=== PATIENT | male | born 1985 | race Caucasian/White ===

== ENCOUNTER 2017-04-22 20:26 | Emergency (ER) | payer OTHER ==
[2017-04-22 21:10] VITALS: RESP 18
[2017-04-22] MEDS ORDERED: LORazepam 1 MG TAB PO STA (21:50)
--- NOTE | 2017-04-22 23:25 | ED ---
Anxiety HPI - General Chief Complaint: Anxiety Stated Complaint: Anxiety/JEREMIAH Time Seen by Provider: 04/22/17 21:38 Source: patient, RN notes reviewed Mode of arrival: ambulatory - History of Present Illness Initial Comments: 32-year-old male presents to the emergency department with a chief complaint of anxiety. Patient has a history of anxiety as well as PTSD. Over the last week or so he's been noticing some increasing anxiety started to have some anxiety attacks. Patient states that he'll get shortness of breath he will become very anxious she will feel as if he cannot function normally. Patient states that the symptoms make him concerned so he thought that he should be evaluated. Patient states he hasn't had any fever chills with this. Patient states this is a much like his anxiety. He went to his counselor and talked that he is still having anxiety so he thought that maybe we can help. He has never taken any medications for his anxiety in the past. He is always she's been able to handle it. Patient denies any known triggers. Patient denies any suicidal or homicidal ideation.Patient denies any recent fever, chills, shortness of breath , chest pain, back pain, abdominal pain, nausea vomiting, numbness or tingling, dysuria or hematuria, constipation or diarrhea, headaches or visual changes, or any other current symptoms. - Related Data Home Medications: Home Medications Medication Instructions Recorded Confirmed No Known Home Medications [No 11/05/15 04/22/17 Known Home Medications] Allergies/Adverse Reactions: Allergies Allergy/AdvReac Type Severity Reaction Status Date / Time No Known Allergies Allergy Verified 04/22/17 22:17 Review of Systems ROS Statement: Those systems with pertinent positive or pertinent negative responses have been documented in the HPI. ROS Other: All systems not noted in ROS Statement are negative. Past Medical History Past Medical History: No Reported History History of Any Multi-Drug Resistant Organisms: None Reported Past Surgical History: Appendectomy, Hernia Repair Past Psychological History: Anxiety, Panic Disorder, PTSD Smoking Status: Former smoker Past Alcohol Use History: None Reported Past Drug Use History: None Reported General Exam Limitations: no limitations General appearance: alert, in no apparent distress ENT exam: Present: normal exam, mucous membranes moist Neck exam: Present: normal inspection. Absent: tenderness, meningismus, lymphadenopathy Respiratory exam: Present: normal lung sounds bilaterally. Absent: respiratory distress, wheezes, rales, rhonchi, stridor Cardiovascular Exam: Present: regular rate, normal rhythm, normal heart sounds. Absent: systolic murmur, diastolic murmur, rubs, gallop, clicks Neurological exam: Present: alert, oriented X3 Psychiatric exam: Present: normal mood, anxious Skin exam: Present: warm, dry, intact, normal color. Absent: rash Course Vital Signs 04/22/17 21:07 Temperature 98.0 F Pulse Rate 87 Respiratory 18 Rate Blood Pressure 132/74 O2 Sat by Pulse 98 Oximetry Medical Decision Making - Medical Decision Making 32-year-old male presents with appears to be an anxiety attack. Patient was given Ativan and states that he has not noticed much improvement or if he states the hospital to make him anxious. He was often psych evaluation he has not suicidal or homicidal just for someone else talk to he states that he has a concert he does not believe that he needs this. At this time he is requesting discharge home. We did discuss return parameters and follow-up. He does consent to safety. All discussion have been answered. At this time we will discharge the patient home. Disposition Clinical Impression: Anxiety Disposition: HOME SELF-CARE Condition: Stable Instructions: Anxiety (ED) Additional Instructions: Please use medication as discussed. Please follow up with family doctor if symptoms have not improved over the next two days. Please return to the emergency room if your symptoms increase or worsen or for any other concerns. Referrals: Chinmay Jean MD [Primary Care Provider] - 1-2 days Time of Disposition: 23:24
[2017-04-22 23:39] VITALS: BP 125/69; PULSE 59; TEMP 97.9
== END 2017-04-22 23:38 | disposition home or self-care (01) ==
LOC: EC 20:26
DX: Z87.891 Personal history of nicotine dependence (principal); F43.10 Post-traumatic stress disorder, unspecified; F41.9 Anxiety disorder, unspecified
CPT/HCPCS: 99283

== ENCOUNTER 2017-05-11 17:32 | Emergency (ER) | payer OTHER ==
[2017-05-11 17:37] VITALS: BP 129/84; PULSE 95; RESP 18; TEMP 99
[2017-05-11] MEDS ORDERED: ORPHENADRINE 30 MG/ML 2 ML VIAL IM STA (17:45)
[2017-05-11] MEDS ORDERED: KETOROLAC 60 MG/2 ML VIAL IM STA (17:45)
[2017-05-11] MEDS ORDERED: methylPREDNISolone SOD SUCCI 125 MG/2 ML VIAL IM ONE (17:45)
--- NOTE | 2017-05-11 17:50 | ED ---
Back Pain HPI - General Chief Complaint: Back Pain/Injury Stated Complaint: [facility] back pain Time Seen by Provider: 05/11/17 17:38 Source: patient Limitations: no limitations - History of Present Illness Initial Comments: 32-year-old male patient presents to emergency department today for evaluation of lower back pain. Patient states that yesterday he was up at her at work when the ladder shifted, and he jerked "tweaking" his back. Patient states that he has a mild pain to his left lower back throughout the day yesterday, when he woke this morning the pain was more intense, and he had sharp shooting pain radiating down the back of his left leg to his knee. Patient states he has had sciatica in the past and is very similar to those symptoms. Patient denies any loss of bowel or bladder control, saddle paresthesia, or numbness and tingling to his lower extremities. Patient denies any chest pain, neck pain , abdominal pain, nausea, vomiting, hematuria, dysuria, urinary frequency or urgency. Denies any constipation, diarrhea, hematochezia, or melena. - Related Data Previous Rx's Medication Instructions Recorded Cyclobenzaprine [Flexeril] 10 mg PO TID #15 tab 05/11/17 Hydrocodone/Acetaminophen [Gill 1 tab PO Q6HR PRN #15 tab 05/11/17 5-325] Ibuprofen [Motrin] 600 mg PO Q6HR PRN #20 tab 05/11/17 methylPREDNISolone [Medrol Dose 4 mg PO DIRECTED #1 pack 05/11/17 Pack] Allergies Allergy/AdvReac Type Severity Reaction Status Date / Time No Known Allergies Allergy Verified 05/11/17 17:37 Review of Systems ROS Statement: Those systems with pertinent positive or pertinent negative responses have been documented in the HPI. ROS Other: All systems not noted in ROS Statement are negative. Past Medical History Past Medical History: No Reported History History of Any Multi-Drug Resistant Organisms: None Reported Past Surgical History: Appendectomy, Hernia Repair Past Psychological History: Anxiety, Panic Disorder, PTSD Smoking Status: Former smoker Past Alcohol Use History: None Reported Past Drug Use History: None Reported General Exam Limitations: no limitations General appearance: alert, in no apparent distress Head exam: Present: atraumatic, normocephalic, normal inspection Eye exam: Present: normal appearance, PERRL, EOMI. Absent: scleral icterus, conjunctival injection, periorbital swelling ENT exam: Present: normal exam, mucous membranes moist Neck exam: Present: normal inspection. Absent: tenderness, meningismus, lymphadenopathy Respiratory exam: Present: normal lung sounds bilaterally. Absent: respiratory distress, wheezes, rales, rhonchi, stridor Cardiovascular Exam: Present: regular rate, normal rhythm, normal heart sounds. Absent: systolic murmur, diastolic murmur, rubs, gallop, clicks GI/Abdominal exam: Present: soft, normal bowel sounds. Absent: distended, tenderness, guarding, rebound, rigid Extremities exam: Present: normal inspection, full ROM, normal capillary refill. Absent: tenderness, pedal edema, joint swelling, calf tenderness Back exam: Present: normal inspection, full ROM. Absent: tenderness, CVA tenderness (R), CVA tenderness (L), vertebral tenderness Expanded Back exam: Positive Straight Leg Raise: Left Neurological exam: Present: alert, oriented X3, CN II-XII intact Psychiatric exam: Present: normal affect, normal mood Skin exam: Present: warm, dry, intact, normal color. Absent: rash Course Vital Signs 05/11/17 17:33 Temperature 99.0 F Pulse Rate 95 Respiratory 18 Rate Blood Pressure 129/84 O2 Sat by Pulse 98 Oximetry Medical Decision Making - Medical Decision Making 32-year-old male patient presented to emergency department today for evaluation of lower back pain. Patient's symptoms are consistent with sciatica. Patient given IM injections of Toradol, Norflex, and Cipro Medrol. Patient be discharged home with a prescription for Gill, Motrin, Flexeril, and a Medrol Dosepak. Patient checked her to follow up with primary care physician a 1-2 days for recheck. Patient shortly to return for any new, worsening, or concerning symptoms. Patient verbalizes understanding and agrees with plan. Disposition Clinical Impression: Sciatica, Back pain Disposition: HOME SELF-CARE Condition: Good Instructions: Sciatica (ED), Acute Low Back Pain (ED) Additional Instructions: Gentle stretching exercises. Complete steroid Dosepak and full. Take pain medications as directed. Do not take muscle relaxers or narcotic pain medications while working, driving, or operating heavy machinery. Follow up with primary care provider in one to 2 days for recheck. Return for any new, worsening, or concerning symptoms. Prescriptions: Cyclobenzaprine [Flexeril] 10 mg PO TID #15 tab Hydrocodone/Acetaminophen [Gill 5-325] 1 tab PO Q6HR PRN #15 tab PRN Reason: Pain Ibuprofen [Motrin] 600 mg PO Q6HR PRN #20 tab PRN Reason: Pain methylPREDNISolone [Medrol Dose Pack] 4 mg PO DIRECTED #1 pack Referrals: Chinmay Jean MD [Primary Care Provider] - 1-2 days Time of Disposition: 17:50
== END 2017-05-11 18:07 | disposition home or self-care (01) ==
LOC: EC 17:32
DX: M54.30 Sciatica, unspecified side (principal); Z87.891 Personal history of nicotine dependence
CPT/HCPCS: 99283; 96372 ×3; J2360; J2930; J1885

== ENCOUNTER 2017-12-07 02:59 | Emergency (ER) | payer OTHER ==
[2017-12-07 03:04] VITALS: RESP 16; TEMP 98.6
[2017-12-07 04:09] LABS: Basophils # (A) 0.1 k/uL (0-0.2); Basophils % (A) 0 %; Eosinophils # (A) 0.2 k/uL (0-0.7); Eosinophils % (A) 2 %; Lymphocytes # (A) 1.9 k/uL (1.0-4.8); Lymphocytes % (A) 18 %; MCH 30.3 pg (25.0-35.0); MCHC 34.8 g/dL (31.0-37.0); MCV 87.1 fL (80.0-100.0); Mean Platelet Volume 6.9; Monocytes # (A) 0.6 k/uL (0-1.0); Monocytes % (A) 5 %; Neutrophils # (A) 8.1 k/uL (1.3-7.7); Neutrophils % (A) 74 %; Platelet Count 291 k/uL (150-450); RBC 4.94 m/uL (4.30-5.90)
--- NOTE | 2017-12-07 04:15 | CT ---
EXAM: CT Abdomen and Pelvis Without Intravenous Contrast CLINICAL HISTORY: ITS.REASON CT Reason: Pain TECHNIQUE: Axial computed tomography images of the abdomen and pelvis without intravenous contrast. CTDI is 9.00 mGy and DLP is 447.30 mGy-cm. This CT exam was performed using one or more of the following dose reduction techniques: automated exposure control, adjustment of the mA and/or kV according to patient size, and/or use of iterative reconstruction technique. COMPARISON: 06/02/15 FINDINGS: Lower thorax: No acute findings. ABDOMEN: Liver: Unremarkable. Gallbladder and bile ducts: Unremarkable. No calcified stones. No ductal dilation. Pancreas: Unremarkable. No ductal dilation. Spleen: Unremarkable. No splenomegaly. Adrenals: Unremarkable. No mass. Kidneys and ureters: Unremarkable. No obstructing stones. No hydronephrosis. Stomach and bowel: Colonic fecal stasis noted. No obstruction. No mucosal thickening. Appendix: No findings to suggest acute appendicitis. PELVIS: Bladder: Unremarkable. No stones. Reproductive: Unremarkable as visualized. ABDOMEN and PELVIS: Intraperitoneal space: Unremarkable. No free air. No significant fluid collection. Bones/joints: No acute fracture. No dislocation. Soft tissues: Unremarkable. Vasculature: Unremarkable. No abdominal aortic aneurysm. Lymph nodes: Unremarkable. No enlarged lymph nodes. IMPRESSION: No acute findings. Colonic fecal stasis noted.
[2017-12-07 04:26] LABS: ALT 40 U/L (21-72); AST 41 U/L (17-59); Albumin 3.9 g/dL (3.5-5.0); Alkaline Phosphatase 78 U/L (38-126); Amylase 49 U/L (30-110); Anion Gap 11 mmol/L; Blood Urea Nitrogen 12 mg/dL (9-20); C Reactive Protein 7.8 mg/L (<10.0); Calcium 9.4 mg/dL (8.4-10.2); Carbon Dioxide 26 mmol/L (22-30); Chloride 106 mmol/L (98-107); Glucose 91 mg/dL (74-99); Lipase 58 U/L (23-300); Potassium 3.7 mmol/L (3.5-5.1); Sodium 143 mmol/L (137-145); Total Bilirubin 0.5 mg/dL (0.2-1.3)
[2017-12-07 04:46] LABS: Appearance,Urine Clear (Clear); Bilirubin,Urine Negative (Negative); Blood,Urine Small (Negative); Color,Urine Yellow; Glucose,Urine (UA) Negative (Negative); Ketones,Urine Negative (Negative); Leukocyte Esterase,Urine Negative (Negative); Mucus,Urine Rare /hpf; Nitrite,Urine Negative (Negative); PH, Urine 5.5 (5.0-8.0); Protein,Urine Trace (Negative); RBC,Urine 17 /hpf (0-5); Specific Gravity,Urine 1.007 (1.001-1.035); Sperm,Urine Rare /hpf; Squamous Epithelial Cell,Urine <1 /hpf (0-4); Urobilinogen,Urine <2.0 mg/dL (<2.0); WBC,Urine 6 /hpf (0-5)
[2017-12-07] MEDS ORDERED: LEVOFLOXACIN 750 MG TAB PO STA (05:27)
[2017-12-07] MEDS ORDERED: cefTRIAXone IN SWFI 1,000 MG/10 ML SYRINGE IVP STA (06:11)
--- NOTE | 2017-12-07 06:12 | ED ---
Abdominal Pain HPI - General Chief Complaint: Abdominal Pain Stated Complaint: abd pain Time Seen by Provider: 12/07/17 03:09 Source: patient Mode of arrival: ambulatory Limitations: no limitations - History of Present Illness Initial Comments: Patient's 32-year-old man with bilateral lower abdominal pain. He was complaining of very severe pain and there was some tenderness on the exam, therefore computed tomography scan is ordered which is negative for emergent condition. We discussed appropriate further care and follow-up. Return parameters discussed. MD Complaint: abdominal pain Onset/Timin -: days(s) Location: LLQ, RLQ Radiation: none Migration to: no migration Severity: severe Quality: cramping Consistency: constant Improves With: nothing Worsens With: nothing Associated Symptoms: denies other symptoms - Related Data Previous Rx's Medication Instructions Recorded Cyclobenzaprine [Flexeril] 10 mg PO TID #15 tab 05/11/17 Hydrocodone/Acetaminophen [Girard 1 tab PO Q6HR PRN #15 tab 05/11/17 5-325] Ibuprofen [Motrin] 600 mg PO Q6HR PRN #20 tab 05/11/17 methylPREDNISolone [Medrol Dose 4 mg PO DIRECTED #1 pack 05/11/17 Pack] Ciprofloxacin HCl [Cipro] 500 mg PO Q12HR #14 tablet 12/07/17 Allergies Allergy/AdvReac Type Severity Reaction Status Date / Time No Known Allergies Allergy Verified 12/07/17 03:04 Review of Systems ROS Statement: Those systems with pertinent positive or pertinent negative responses have been documented in the HPI. ROS Other: All systems not noted in ROS Statement are negative. Constitutional: Denies: fever, chills Respiratory: Denies: cough, dyspnea Cardiovascular: Denies: chest pain, palpitations Gastrointestinal: Reports: abdominal pain. Denies: nausea, vomiting, diarrhea, constipation, melena, hematochezia Genitourinary: Reports: hematuria. Denies: dysuria Musculoskeletal: Denies: back pain Skin: Denies: rash Neurological: Denies: headache, weakness, numbness Past Medical History Past Medical History: No Reported History History of Any Multi-Drug Resistant Organisms: None Reported Past Surgical History: Appendectomy, Hernia Repair Past Psychological History: Anxiety, Panic Disorder, PTSD Smoking Status: Former smoker Past Alcohol Use History: None Reported Past Drug Use History: None Reported General Exam Limitations: no limitations General appearance: alert, in no apparent distress Head exam: Present: atraumatic, normocephalic Eye exam: Present: normal appearance. Absent: scleral icterus, conjunctival injection ENT exam: Present: normal oropharynx Neck exam: Present: normal inspection Respiratory exam: Present: normal lung sounds bilaterally. Absent: respiratory distress, wheezes, rales, rhonchi, stridor Cardiovascular Exam: Present: regular rate, normal rhythm, normal heart sounds. Absent: systolic murmur, diastolic murmur, rubs, gallop GI/Abdominal exam: Present: soft, tenderness (There is mild bilateral lower quadrant and suprapubic tenderness without rebound or guarding), normal bowel sounds. Absent: distended, guarding, rebound, rigid, mass, bruit, pulsatile mass, hernia Extremities exam: Present: normal inspection, normal capillary refill. Absent: pedal edema, calf tenderness Back exam: Present: normal inspection. Absent: CVA tenderness (R), CVA tenderness (L) Neurological exam: Present: alert, normal gait Skin exam: Present: warm, dry, intact, normal color. Absent: rash Course Vital Signs 12/07/17 12/07/17 12/07/17 03:01 04:25 06:46 Temperature 98.6 F Pulse Rate 86 76 82 Respiratory 16 16 16 Rate Blood Pressure 153/81 130/71 136/66 O2 Sat by Pulse 100 97 96 Oximetry Medical Decision Making - Lab Data Result diagrams: 12/07/17 03:44 12/07/17 03:44 Lab Results 12/07/17 12/07/17 12/07/17 Range/Units 03:44 03:44 04:30 WBC 11.0 H (3.8-10.6) k/uL RBC 4.94 (4.30-5.90) m/uL Hgb 15.0 (13.0-17.5) gm/dL Hct 43.0 (39.0-53.0) % MCV 87.1 (80.0-100.0) fL MCH 30.3 (25.0-35.0) pg MCHC 34.8 (31.0-37.0) g/dL RDW 12.0 (11.5-15.5) % Plt Count 291 (150-450) k/uL Neutrophils % 74 % Lymphocytes % 18 % Monocytes % 5 % Eosinophils % 2 % Basophils % 0 % Neutrophils # 8.1 H (1.3-7.7) k/uL Lymphocytes # 1.9 (1.0-4.8) k/uL Monocytes # 0.6 (0-1.0) k/uL Eosinophils # 0.2 (0-0.7) k/uL Basophils # 0.1 (0-0.2) k/uL Sodium 143 (137-145) mmol/L Potassium 3.7 (3.5-5.1) mmol/L Chloride 106 (98-107) mmol/L Carbon Dioxide 26 (22-30) mmol/L Anion Gap 11 mmol/L BUN 12 (9-20) mg/dL Creatinine 1.10 (0.66-1.25) mg/dL Est GFR (MDRD) Af Amer >60 (>60 ml/min/1.73 sqM) Est GFR (MDRD) Non-Af >60 (>60 ml/min/1.73 sqM) Glucose 91 (74-99) mg/dL Calcium 9.4 (8.4-10.2) mg/dL Total Bilirubin 0.5 (0.2-1.3) mg/dL AST 41 (17-59) U/L ALT 40 (21-72) U/L Alkaline Phosphatase 78 (38-126) U/L C-Reactive Protein 7.8 (<10.0) mg/L Total Protein 7.0 (6.3-8.2) g/dL Albumin 3.9 (3.5-5.0) g/dL Amylase 49 (30-110) U/L Lipase 58 (23-300) U/L Urine Color Yellow Urine Appearance Clear (Clear) Urine pH 5.5 (5.0-8.0) Ur Specific [place] 1.007 (1.001-1.035) Urine Protein Trace H (Negative) Urine Glucose (UA) Negative (Negative) Urine Ketones Negative (Negative) Urine Blood Small H (Negative) Urine Nitrite Negative (Negative) Urine Bilirubin Negative (Negative) Urine Urobilinogen <2.0 (<2.0) mg/dL Ur Leukocyte Esterase Negative (Negative) Urine RBC 17 H (0-5) /hpf Urine WBC 6 H (0-5) /hpf Ur Squamous Epith Cells <1 (0-4) /hpf Urine Mucus Rare H (None) /hpf Urine Sperm Rare (None) /hpf Disposition Clinical Impression: Abdominal pain, Urinary tract infection Disposition: HOME SELF-CARE Condition: Fair Instructions: Urinary Tract Infection in Men (ED), Abdominal Pain (ED) Prescriptions: Ciprofloxacin HCl [Cipro] 500 mg PO Q12HR #14 tablet Referrals: Chinmay Jean MD [Primary Care Provider] - 1-2 days
[2017-12-07 06:47] VITALS: BP 136/66; PULSE 82
--- NOTE | 2017-12-08 04:10 | CDI ---
Documentation Clarification OP Dear Miguel Angel BADILLO MD Please do addendum to ED report for HPI , Physical exam and MDM. Thank you, Corrine Jones Retort Operator If you have any question, Please contact manager data at [phone] [facility]
== END 2017-12-07 06:47 | disposition home or self-care (01) ==
LOC: EC 02:59
DX: N39.0 Urinary tract infection, site not specified (principal); R10.31 Right lower quadrant pain; R10.32 Left lower quadrant pain; Z87.891 Personal history of nicotine dependence; Z90.49 Acquired absence of other specified parts of digestive tract
CPT/HCPCS: 36415; 80053; 82150; 83690; 85025; 86140; 81001; 74176; 99284; 96374; J0696

== ENCOUNTER 2018-04-01 17:28 | Emergency (ER) | payer OTHER ==
[2018-04-01 17:33] VITALS: BP 127/85; PULSE 78; RESP 18; TEMP 97.9
--- NOTE | 2018-04-01 19:01 | ED ---
General Adult HPI - General Chief complaint: Extremity Injury, Lower Stated complaint: left knee pain Time Seen by Provider: 04/01/18 17:49 Source: patient, RN notes reviewed Mode of arrival: ambulatory Limitations: physical limitation - History of Present Illness Initial comments: Chief complaint history of present illness a 33-year-old male who after doing cross training developed pain and swelling to his left knee. Patient can't remember any specific injury. But he has been working out heavily for competition. Patient presents now with joint effusion left knee. Pain with flexion. No fever. The patient unfortunately soaked in hot Epsom salts which may have increased swelling. I discussed the patient using cold the first 2 days and then heat afterwards. - Related Data Previous Rx's Medication Instructions Recorded Ibuprofen [Motrin] 600 mg PO Q6HR PRN #20 tab 04/01/18 Allergies Allergy/AdvReac Type Severity Reaction Status Date / Time No Known Allergies Allergy Verified 04/01/18 18:02 Review of Systems ROS Statement: Those systems with pertinent positive or pertinent negative responses have been documented in the HPI. Review of systems no other complaints of head neck body or extremity pain other than pain swelling left knee. All systems were reviewed. Past medical problems none. Surgeries none. Family history 2 sisters of unknown types of cancer. Patient has no ALLERGIES. He quit smoking 3 months ago. She to alcohol rarely socially. ROS Other: All systems not noted in ROS Statement are negative. Past Medical History Past Medical History: No Reported History History of Any Multi-Drug Resistant Organisms: None Reported Past Surgical History: Appendectomy, Hernia Repair Past Psychological History: Anxiety, Panic Disorder, PTSD Smoking Status: Former smoker Past Alcohol Use History: None Reported Past Drug Use History: None Reported General Exam - General Exam Comments Initial Comments: Pertinent to the patient's visit. Vital signs temp 97.9 pulse 78 respiratory rate 18 pulse ox 90% room air blood pressure 127/85 Examination of the knee shows discomfort with valgus stressing to the top of the patella. Localized swelling without erythema. Negative pain with varus straining. Negative Homans sign. Neurovascular status of foot is intact. Negative drawer sign. X-rays of the left knee. Patient advised to apply ice. Advised not to strain the knee with sports. Advised to use ibuprofen 600 mg every 6 hours as needed for pain. Advised follow-up with family physician. If he does not have a orthopedic surgeon already was advised to follow-up with Dr. Nunn Limitations: physical limitation Course Vital Signs 04/01/18 17:31 Temperature 97.9 F Pulse Rate 78 Respiratory 18 Rate Blood Pressure 127/85 O2 Sat by Pulse 98 Oximetry Medical Decision Making - Medical Decision Making Medical decision making; this is a 33-year-old male here for complaint of left knee pain. Localized swelling. X-ray left knee was done and reviewed by radiologist his impression is there is mild knee joint effusion. There is spurring on the patella. There is minor spurring on the medial and lateral femoral and tibial condyles. I see no fracture. There are slightly narrowing of the medial joint space. Impression mild osteoarthritic changes. No fracture seen. As read by Dr. Chandler I discussed the findings of the radiographs with the patient. Advised to use ibuprofen 600 mg. Ice. No overt exercising. He will be referred on to orthopedics because of his young age and early osteoarthritic changes. Disposition Clinical Impression: Sprain of left knee, Osteoarthritis Disposition: HOME SELF-CARE Condition: Fair Instructions: Knee Pain (ED), Osteoarthritis (ED) Additional Instructions: Ice rest, ibuprofen or naproxen for pain and swelling. Follow-up with family physician and on-call orthopedic surgeon. Prescriptions: Ibuprofen [Motrin] 600 mg PO Q6HR PRN #20 tab PRN Reason: Pain Is patient prescribed a controlled substance at d/c from ED?: No Referrals: Chinmay Jean MD [Primary Care Provider] - 1-2 days Karina Nunn DO [Doctor of Osteopathic Medicine] - 1-2 days Time of Disposition: 19:23
--- NOTE | 2018-04-01 19:10 | XR ---
EXAMINATION TYPE: XR knee complete LT DATE OF EXAM: 04/01/2018 COMPARISON: NONE HISTORY: Knee pain TECHNIQUE: 3 views FINDINGS: There is a mild knee joint effusion. There is spurring on the patella. There is minor spurr ing of the medial and lateral femoral and tibial condyles. I see no fracture. There is slight narrowi ng of the medial joint space. IMPRESSION: Mild osteoarthritic changes. No fracture seen.
== END 2018-04-01 19:30 | disposition home or self-care (01) ==
LOC: EC 17:28
DX: S83.92XA Sprain of unspecified site of left knee, initial encounter (principal); M17.12 Unilateral primary osteoarthritis, left knee; Z87.891 Personal history of nicotine dependence
CPT/HCPCS: 99283

== ENCOUNTER 2018-04-03 20:19 | Emergency (ER) | payer OTHER ==
[2018-04-03 20:25] VITALS: RESP 18
--- NOTE | 2018-04-03 21:36 | XR ---
EXAMINATION TYPE: XR ribs RT w pa chest xray DATE OF EXAM: 04/03/2018 COMPARISON: Chest x-ray 07/16/2015 HISTORY: Pain TECHNIQUE: 2 view right ribs supplemented with a frontal chest. FINDINGS: No displaced rib fractures are evident. No pneumothorax is evident. Lung cotton are clear. The heart size is normal. IMPRESSION: 1. No acute rib fracture. 2. No pneumothorax
--- NOTE | 2018-04-03 21:43 | ED ---
General Adult HPI - General Chief complaint: Extremity Injury, Lower Stated complaint: Knee pain Time Seen by Provider: 04/03/18 20:31 Source: patient, RN notes reviewed Mode of arrival: wheelchair Limitations: physical limitation - History of Present Illness Initial comments: 33-year-old male presents to the emergency department for multiple complaints. Patient complains of left knee pain. Patient states this started 4 days ago and he was seen in the emergency department at that time. Negative x-rays. Patient states he did as he was told and rest, ice, and took Motrin for the pain. Patient states the swelling in the knee had decreased dramatically and the pain had subsided. Patient then decided to compete in a cross that competition yesterday which re-exacerbated the pain. Patient states it is swollen. Again and painful to walk on. Patient states the Motrin is not helping as much as it was before. This exacerbation of pain and swelling has been for the past day. Patient denies any acute injuries to the knee. Patient also complains of rib pain times one day. Earlier today patient dropped a weight on his chest. Patient states it is painful to take a deep breath. Patient would like to make sure no ribs are broken. Patient states the pain is all in the right side. Patient denies any abdominal pain.Patient has no other complaints at this time including shortness of breath, chest pain, abdominal pain, nausea or vomiting, headache, or visual changes. - Related Data Previous Rx's Medication Instructions Recorded Ibuprofen [Motrin] 600 mg PO Q6HR PRN #20 tab 04/01/18 HYDROcodone/APAP 5-325MG [Sobieski 1 tab PO Q6HR PRN #10 tab 04/03/18 5-325] Ibuprofen [Motrin] 600 mg PO Q6HR PRN #20 tab 04/03/18 Allergies Allergy/AdvReac Type Severity Reaction Status Date / Time No Known Allergies Allergy Verified 04/03/18 20:25 Review of Systems ROS Statement: Those systems with pertinent positive or pertinent negative responses have been documented in the HPI. ROS Other: All systems not noted in ROS Statement are negative. Past Medical History Past Medical History: No Reported History History of Any Multi-Drug Resistant Organisms: None Reported Past Surgical History: Appendectomy, Hernia Repair Past Psychological History: Anxiety, Panic Disorder, PTSD Smoking Status: Former smoker Past Alcohol Use History: None Reported Past Drug Use History: None Reported General Exam Limitations: physical limitation General appearance: alert, in no apparent distress Head exam: Present: atraumatic, normocephalic, normal inspection Eye exam: Present: normal appearance, PERRL, EOMI. Absent: scleral icterus, conjunctival injection, periorbital swelling, periorbital tenderness ENT exam: Present: normal exam, mucous membranes moist Neck exam: Present: normal inspection, full ROM. Absent: tenderness, meningismus, lymphadenopathy Respiratory exam: Present: normal lung sounds bilaterally, chest wall tenderness (Right side anterior rib tenderness. No ecchymosis. No step offs. ). Absent: respiratory distress, wheezes, rales, rhonchi, stridor Cardiovascular Exam: Present: regular rate, normal rhythm, normal heart sounds. Absent: systolic murmur, diastolic murmur, rubs, gallop, clicks GI/Abdominal exam: Present: soft, normal bowel sounds. Absent: distended, tenderness, guarding, rebound, rigid Extremities exam: Present: normal capillary refill (Refill less than 2 seconds and pedal pulse 2+ in the left lower extremity), joint swelling (Patient has moderate swelling of the left knee. No erythema or signs of infection.), other (Sensation intact in the left lower extremity. Patient is able to move all toes.). Absent: full ROM (Patient has 90 of flexion of the left kidney and full extension.), tenderness (No tenderness to the anterior or posterior knee. No tenderness to the left calf.), calf tenderness (No tenderness in the calf. No redness swelling or erythema noted in the left calf.) Back exam: Present: normal inspection. Absent: tenderness, CVA tenderness (R), CVA tenderness (L) Course Vital Signs 04/03/18 20:21 Temperature 97.8 F Pulse Rate 85 Respiratory 18 Rate Blood Pressure 129/70 O2 Sat by Pulse 97 Oximetry Medical Decision Making - Medical Decision Making 33-year-old male presents to the emergency department for multiple complaints including rib pain and left knee pain. Patient was seen in the emergency department for knee pain 4 days ago as he was working out excessively for a competition. Negative x-ray at that time. Patient was told to rest ice and elevate the knee and take Motrin which resolved his symptoms. Since he felt better he competed in across the, patient yesterday which exacerbated the pain. Patient states the knee feels more swollen at this point and is painful to walk on. Patient has about 90 flexion of the knee in full extension. Neurovascular intact. No tenderness to the knee. There is moderate swelling of the left knee. Discussed a repeat x-ray and at this time patient chooses to follow-up with orthopedics instead as x-ray will likely not show any new findings without an acute injury. Patient also dropped a weight on his chest today and complains of right sided anterior rib pain. Patient does have tenderness to the ribs. No abdominal tenderness. No ecchymosis noted of the ribs. No step-off palpated. Patient states it is painful to take a deep breath on the right side. Patient denies shortness of breath or difficulty breathing. X-ray shows no displaced rib fractures are evident. No pneumothorax evident. Lung cotton are clear. Patient likely has a contusion of the ribs. He was educated to take deep breaths about 10 times every 2 hours to prevent pneumonia. He will take Motrin for pain. If pain is severe he will take [place]. Patient will make sure to stay off the left knee and rest ice and elevate it. He will follow up with orthopedics in one to 2 days. Patient is aware he can return to the emergency department if he has any worsening symptoms including difficulty breathing. Disposition Clinical Impression: Rib contusion, Knee pain, left Disposition: HOME SELF-CARE Condition: Good Instructions: Knee Pain (ED), Rib Contusion (ED) Additional Instructions: Please rest ice and elevate the knee. Take Motrin for pain. If pain is severe take Sobieski. Please remember to do 10 breaths of deep breathing every 2 hours to prevent pneumonia. Return to the emergency department if you have any worsening symptoms including fever or shortness of breath. Follow-up with orthopedics in one to 2 days. Prescriptions: HYDROcodone/APAP 5-325MG [Sobieski 5-325] 1 tab PO Q6HR PRN #10 tab PRN Reason: Pain Ibuprofen [Motrin] 600 mg PO Q6HR PRN #20 tab PRN Reason: Pain Is patient prescribed a controlled substance at d/c from ED?: No Referrals: Chinmay Jean MD [Primary Care Provider] - 1-2 days Karina Nunn DO [Doctor of Osteopathic Medicine] - 1-2 days Time of Disposition: 21:43
[2018-04-03 21:57] VITALS: BP 130/84; PULSE 60; TEMP 98
== END 2018-04-03 21:57 | disposition home or self-care (01) ==
LOC: EC 20:19
DX: S20.211A Contusion of right front wall of thorax, initial encounter (principal); M25.562 Pain in left knee; M79.89 Other specified soft tissue disorders; Z87.891 Personal history of nicotine dependence; W20.8XXA Other cause of strike by thrown, projected or falling object, initial encounter; Y93.89 Activity, other specified
CPT/HCPCS: 99283